=== PATIENT | male | born 1990 | race Caucasian/White ===

== ENCOUNTER 2021-04-14 10:04 | Emergency (ER) | payer SELFPAY ==
--- OUTSIDE RECORDS SUMMARY | 2021-04-14 10:07 | XMS REPORT | Continuity of Care Document ---
:1990 Author Organization [facility] t Address [address] [place] [address] Care Team Providers Name Role Phone Tolu GONZALEZ, A Attending Clinician Hi MOTLEY Attending Clinician Unavailable Problems This patient has no known problems. Allergies, Adverse Reactions, Alerts Allergy Allergy Status Severity Reaction(s) Onset Inactive Treating Comm ents Source Name Type Date Date Clinician NO KNOWN Drug Active [facility] Social History Social Habit Start Date Stop Date Quantity Comments Source Sex Assigned At Uni versity [facility] Exposure to SARS-CoV-2 Not sure [facility] Smoking Status Start Date Stop Date Source Unknown if ever smoked Universit y [facility] Medications Ordered Filled Start Stop Current Ordering Indication Dosage Frequency Signature Comments Components Source Medication Medication Date Date Medication? Clinician (SIG) Name Name NaCl 0.9% 2019-05 2020- No 1000mL at 999 Uni vers (NS) bolus 06-15 11-26 mL/hr, ity of infusion 09:30: 10:22 1,000 mL, Ariel as 1,000 mL 00 :00 IV Medical Infusion, Branch ONCE, 1 dose, Shaniqua 04/15/20 at 0330, JAMES No known No Univers medications [facility] Vital Signs Vital Name Observation Time Observation Value Comments Source Systolic blood 2020-04-15 12:14:20 112 mm[Hg] Univer sity of pressure [facility] Diastolic blood 2020-04-15 12:14:20 63 mm[Hg] Unive rsity of pressure [facility] Heart rate 2020-04-15 12:14:20 68 /min Universi ty [facility] Respiratory rate 2020-04-15 12:14:20 16 /min [facility] Oxygen saturation in 2020-04-15 12:14:20 95 /min [facility] Arterial blood by [facility] Pulse oximetry Branch Body temperature 2020-04-15 09:22:00 37.28 Kamila [facility] Body height 2020-04-15 09:22:00 188 cm [facility] Body weight 2020-04-15 09:22:00 83.915 kg [facility] BMI 2020-04-15 09:22:00 23.75 kg/m2 [facility] Procedures Procedure Date / Time Performed Performing Clinician Sour e URINALYSIS 2020-04-15 11:18:00 Valentino Motley [facility] HEPATIC FUNCTION PANEL 2020-04-15 09:29:00 Valentino Motley [facility] ([id number]) [facility] (ALB,T.PRO,BILI T,BU/BC,ALT,AST,ALK PHOS) BASIC METABOLIC PANEL 2020-04-15 09:29:00 Valentino Motley [facility] (NA, K, CL, CO2, Medical Branch GLUCOSE, BUN, CREATININE, CA) SALICYLATE 2020-04-15 09:29:00 Valentino Motley [facility] ETHANOL 2020-04-15 09:29:00 Valentino Motley [facility] CBC WITH DIFF 2020-04-15 09:29:00 Valentino Motley [facility] EXTRA TUBE LT. BLUE 2020-04-15 09:29:00 Valentino Mot[facility] Encounters Start End Encounter Admission Attending Care Care Encounter Source Date/Time Date/Time Type Type Clinicians Facility Department ID 2020-04-15 2020-04-15 Emergency ANAIS Motley [id number] Univers 03:18:00 06:48:00 Valentino [facility] [id number] ity of Clear [id number] [facility] [id number] [address] (CLC) 2020-04-15 2020-04-15 Emergency X ANAIS MOTLEY ERT [id number] Univers 03:18:00 03:18:00 VALENTINO handy o f [facility] Results Test Description Test Time Test Comments Results Result Comments Source Urinalysis 2020-04-15 11:48:00 Test Item Value Reference Range Interpretation Comme nts APPEARANCE (test code = Hazy Clear A 3491524769) COLOR (test code = 8803116725) Dark Yellow Yellow A PH (test code = 8012129822) 4.8-8.0 SP GRAVITY (test code = 1.003-1.030 9325165793) GLU U QUAL (test code = Normal Normal 1418723638) BLOOD (test code = 1514326914) Negative Negative KETONES (test code = Negative Negative 5365333315) PROTEIN (test code = 2887-8) 30 mg/dL Negative A UROBILIN (test code = 4.0 mg/dL Normal A 5784790600) BILIRUBIN (test code = Negative Negative 7991669581) NITRITE (test code = Negative Negative 0950704708) LEUK CHASITY (test code = Negative Negative 1002465562) RBC/HPF (test code = See_Comment [Autom ated message] The 2392254397) system which ge nerated this result transmit hipolito reference range : 0 - 3 HPF. The reference r rohan was not used to interpr et this result as sylvester l/abnormal. WBC/HPF (test code = <1 See_Comment [Autom ated message] The 2707530669) system which ge nerated this result transmit hipolito reference range : 0 - 5 HPF. The reference r rohan was not used to interpr et this result as sylvester l/abnormal. BACTERIA (test code = Negative Negative 8422714472) MUCOUS (test code = 1168955120) Slight Negative LPF A AMORPHOUS (test code = Few Rare HPF A 9425357915) SPERM (test code = 6950877929) See_Comment H [Automated message] The system which ge nerated this result transmit hipolito reference range : <=1 HPF. The reference r rohan was not used to interpr et this result as sylvester l/abnormal. Lab Interpretation (test code = Abnormal 65722-9) [facility] [id number] 11:26:00 Test Item Value Reference Range Interpretation Comments ALCOHOL (test code = <10 mg/dL 0872210776) YAZMIN (test code = Toxic Greater than or YAZMIN) equal to 80 mg/dL. NOTE: Whole blood values are approximately 10% to 15% lower than serum and plasma. [facility]2020-11-26 11:26:00 Test Item Value Reference Range Interpretation Comments SALICYLATE (test code <10 mg/L = 4396822877) YAZMIN (test code = YAZMIN) Therapeutic Range: ? Analgesic and Antipyretic Use ? 20-100 mg/L ? ? Anti-Inflammatory Use ? 100-250 mg/L Toxic Range: ? Greater than 300 mg/L [facility]2020-11-26 11:26:00 Test Item Value Reference Range Interpretation Comments ACETAMINOP (test code = <10.0 10-30 L 9593170091) YAZMIN (test code = YAZMIN) Toxic: Greater than 200 ug/mL @ 4 hour post ingestion or greater than 50 ug/mL @ 12 hour post ingestion Lab Interpretation (test Abnormal code = 64682-8) [facility] (NA, K, CL, CO2, GLUCOSE, BUN, CREATININE, CA)2020-04-15 09:51:00 Test Item Value Reference Range Interpretation Comments NA (test code = 140 mmol/L 135-145 3258420841) K (test code = 4.3 mmol/L 3.5-5 2656299438) CL (test code = 100 mmol/L 98-108 2574111316) CO2 TOTAL (test code = 31 mmol/L 23-31 3941568224) AGAP (test code = 2-16 5531164782) BUN (test code = 17 mg/dL 7-23 4421524597) GLUCOSE (test code = 111 mg/dL 70-110 H 5935447658) CREATININE (test code = 1.29 mg/dL 0.6-1.25 H 3779854238) CALCIUM (test code = 9.6 mg/dL 8.6-10.6 9025784788) eGFR Calculation mL/min/1.73m2 (Non-) (test code = 9824292502) eGFR Calculation mL/min/1.73m2 () (test code = 7950819467) YAZMIN (test code = YAZMIN) Association of Glomerular Filtration Rate (GFR) and Staging of Kidney Disease* + --+ --+ ------+| GFR (mL/min/1.73 m2) ?| With Kidney Damage ?| ?Without Kidney Damage+ --------+ --------+ +| ?>90 ?| ?Stage one ?| ? Normal ?+ ---+ ---+ -------+| ?60-89 ?| ?Stage two ?| ? Decreased GFR ? + --+ --+ ------+| ?30-59 ?| ?Stage three ?| ? Stage three ? + --+ --+ ------+| ?15-29 ?| ?Stage four ? | ? Stage four ?+ ---+ ---+ -------+| ?<15 (or dialysis) ? ?| ?Stage five ? | ? Stage five ?+ ---+ ---+ -------+ *Each stage assumes the associated GFR level has been in effect for at least three months. ?Stages 1 to 5, with or without kidney disease, indicate chronic kidney disease. Notes: Determination of stages one and two (with eGFR >59mL/min/1.73 m2) requires estimation of kidney damage for at least three months as defined by structural or functional abnormalities of the kidney, manifested by either:Pathological abnormalities or Markers of kidney damage (including abnormalities in the composition of the blood or urine or abnormalities in imaging tests). Lab Interpretation Abnormal (test code = 22601-4) [facility] (ALB, T.PRO, BILI T, BU/BC, ALT, AST, ALK PHOS)2020-04-15 09:51:00 Test Item Value Reference Range Interpretation Comments TOTAL BILI (test code = 2979000302) 0.6 mg/dL 0.1-1.1 BILI UNCON (test code = 8659970549) 0.6 mg/dL 0.1-1.1 BILI CONJ (test code = 5046751857) 0.0 mg/dL 0-0.3 T PROTEIN (test code = 7119520555) 7.1 g/dL 6.3-8.2 ALBUMIN (test code = 1199164716) 4.5 g/dL 3.5-5 ALK PHOS (test code = 0760108526) 41 U/L 34-122 ALTv (test code = 1742-6) 19 U/L 5-50 AST(SGOT) (test code = 0096243859) 25 U/L 13-40 Lab Interpretation (test code = Normal 27217-2) [facility] with [id number] 09:37:00 Test Item Value Reference Range Interpretation Comments WBC (test code = See_Comment [Automated 6690-2) message] The sy stem which generated this result transmitted reference range : 4.20 - 10.70 10*3/?L. The reference range was not used to interpret this result as normal/abnormal . RBC (test code = See_Comment [Automated 789-8) message] The sy stem which generated this result transmitted reference range : 4.26 - 5.52 10*6/?L. The reference range was not used to interpret this result as normal/abnormal . HGB (test code = 16.4 g/dL 12.2-16.4 718-7) HCT (test code = 46.3 % 38.4-49.3 4544-3) MCV (test code = 93.3 fL 81.7-95.6 787-2) MCH (test code = 33.1 pg 26.1-32.7 H 785-6) MCHC (test code = 35.4 g/dL 31.2-35 H 786-4) RDW-SD (test code = 38.8 fL 38.5-51.6 50463-1) RDW-CV (test code = 11.3 % 12.1-15.4 L 788-0) PLT (test code = See_Comment [Automated 777-3) message] The sy stem which generated this result transmitted reference range : 150 - 328 10*3/ ?L. The reference r rohan was not used to interpret this result as normal/abnormal . MPV (test code = 9.2 fL 9.8-13 L 06080-0) NRBC/100 WBC (test See_Comment [Automat ed code = 6347683408) message] The system which generated this result transmitted reference range : 0.0 - 10.0 /100 WBCs. The refer ence range was not u sed to interpret th is result as normal/abnormal . NRBC x10^3 (test code <0.01 See_Comment [Auto mated = 5835576720) message] The s ystem which generated this result transmitted reference range : 10*3/?L. The reference range was not used to interpret this result as normal/abnormal . GRAN MAT (NEUT) % 52.7 % (test code = 770-8) IMM GRAN % (test code 0.30 % = 2739682123) LYMPH % (test code = 30.8 % 736-9) MONO % (test code = 12.8 % 5905-5) EOS % (test code = 1.7 % 713-8) BASO % (test code = 1.7 % 706-2) GRAN MAT x10^3(ANC) 4.01 10*3/uL 1.99-6.95 (test code = 1123733343) IMM GRAN x10^3 (test <0.03 0-0.06 code = 0397396015) LYMPH x10^3 (test code 2.34 10*3/uL 1.09-3.23 = 731-0) MONO x10^3 (test code 0.97 10*3/uL 0.36-1.02 = 742-7) EOS x10^3 (test code = 0.13 10*3/uL 0.06-0.53 711-2) BASO x10^3 (test code 0.13 10*3/uL 0.01-0.09 H = 704-7) Lab Interpretation Abnormal (test code = 35897-0) [facility]"
[2021-04-14] MEDS ORDERED: AMOX/K CLAV 875 MG TAB ONE (11:02)
--- NOTE | 2021-04-14 11:15 | EDPHYS ---
Physician Documentation [facility] Name: Héctor Chow Age: 30 yrs Sex: Male : 1990 Arrival Date: 04/14/2021 Time: 10:05 Bed 17 Private MD: ED Physician Jennifer Best HPI: 04/14 11:12 This 30 yrs old Male presents to ER via Ambulatory with complaints of Lip Swelling. ma2 11:12 Onset: The symptoms/episode began/occurred gradually, 3 day(s) ago. Associated signs ma2 and symptoms: Pertinent negatives: dazed, injury, neck pain, seizure, vomiting, generalized weakness. Severity of symptoms: At their worst the symptoms were mild, in the emergency department the symptoms are unchanged. The patient has not experienced similar symptoms in the past. Historical: - Allergies: 10:32 No Known Allergies; vg1 - Home Meds: 10:32 None [Active]; vg1 - PMHx: 10:32 None; vg1 - PSHx: 10:32 Left wrist; vg1 - Immunization history:: Client reports having NOT received the Covid vaccine. - Social history:: Smoking status: Patient reports the use of cigarette tobacco products, smokes one-half pack cigarettes per day. - Family history:: not pertinent. ROS: 11:12 Constitutional: Negative for fever, chills, and weight loss. ma2 11:12 All other systems are negative. Exam: 11:12 Constitutional: This is a well developed, well nourished patient who is awake, alert, ma2 and in no acute distress. Head/Face: Patient has a right lower lip cellulitis, mild, otherwise doing, gum and airway are intact. And no airway swelling or compromise. Eyes: Pupils equal round and reactive to light, extra-ocular motions intact. Lids and lashes normal. Conjunctiva and sclera are non-icteric and not injected. Cornea within normal limits. Periorbital areas with no swelling, redness, or edema. ENT: Nares patent. No nasal discharge, no septal abnormalities noted. Tympanic membranes are normal and external auditory canals are clear. Oropharynx with no redness, swelling, or masses, exudates, or evidence of obstruction, uvula midline. Mucous membranes moist. Neck: Trachea midline, no thyromegaly or masses palpated, and no cervical lymphadenopathy. Supple, full range of motion without nuchal rigidity, or vertebral point tenderness. No Meningismus. Chest/axilla: Normal chest wall appearance and motion. Nontender with no deformity. No lesions are appreciated. Cardiovascular: Regular rate and rhythm with a normal S1 and S2. No gallops, murmurs, or rubs. Normal PMI, no JVD. No pulse deficits. Respiratory: Lungs have equal breath sounds bilaterally, clear to auscultation and percussion. No rales, rhonchi or wheezes noted. No increased work of breathing, no retractions or nasal flaring. Abdomen/GI: Soft, non-tender, with normal bowel sounds. No distension or tympany. No guarding or rebound. No evidence of tenderness throughout. Vital Signs: 10:31 BP 132 / 89; Pulse 100; Resp 16; Temp 98.3; Pulse Ox 100% ; Weight 79.38 kg; Height 6 vg1 ft. 2 in. (187.96 cm); Pain 5/10; 11:30 BP 128 / 76; Pulse 81; Resp 18; Temp 98.2; Pulse Ox 100% ; sl2 10:31 Body Mass Index 22.47 (79.38 kg, 187.96 cm) vg1 MDM: 11:12 Differential diagnosis: Contusion of Hematoma on cellulitis right lower li[. Data ma2 reviewed: vital signs, nurses notes, EMS record. Counseling: I had a detailed discussion with the patient and/or guardian regarding: the historical points, exam findings, and any diagnostic results supporting the discharge/admit diagnosis, the presence of at least one elevated blood pressure reading (>120/80) during this emergency department visit, the need for outpatient follow up. Response to treatment: the patient's symptoms have markedly improved after treatment. 11:14 Patient medically screened. ma2 Administered Medications: 11:15 Drug: Augmentin (Amoxicillin-Clavulanate) 875 mg Route: PO; sl2 12:10 Follow up: Response: No adverse reaction sl2 11:15 Drug: Augmentin (Amoxicillin-Clavulanate) 875 mg Route: PO; sl2 11:40 Follow up: Response: No adverse reaction sl2 11:15 Drug: predniSONE 40 mg Route: PO; sl2 11:40 Follow up: Response: No adverse reaction sl2 Disposition Summary: 04/14/21 11:14 Discharge Ordered Location: Home ma2 Condition: Stable ma2 Diagnosis - Cellulitis of face - lower lip, right side ma2 Followup: ma2 - With: Private Physician - When: Tomorrow - Reason: Continuance of care Discharge Instructions: - Discharge Summary Sheet ma2 - Cellulitis, Adult ma2 Forms: - Medication Reconciliation Form ma2 - Thank You Letter ma2 - Antibiotic Education ma2 - Prescription Opioid Use ma2 Prescriptions: - Augmentin 875-125 mg Oral Tablet - take 1 tablet by ORAL route every 12 hours for 10 days; 20 tablet; Refills: 0, ma2 Product Selection Permitted - Diclofenac Sodium 75 mg Oral Tablet Sustained Release - take 1 tablet by ORAL route 2 times per day; 30 tablet; Refills: 0, Product ma2 Selection Permitted - Medrol (Bairon) 4 mg Oral Tablets, Dose Pack - take 1 tablet by ORAL route as directed - follow package instructions; 1 ma2 packet; Refills: 0, Product Selection Permitted Signatures: Jennifer Best MD MD ma2 Monica Ibarra RN RN vg1 Patti Arroyo RN RN sl2
--- NOTE | 2021-04-14 11:15 | ER ---
Nurse's Notes [facility] Name: Héctor Chow Age: 30 yrs Sex: Male : 1990 Arrival Date: 04/14/2021 Time: 10:05 Bed 17 Private MD: Diagnosis: Cellulitis of face-lower lip, right side Presentation: 04/14 10:31 Chief complaint: Patient states: Right side of lower lip swelling for about two days, vg1 stated worse this morning. Stated 'may be from an ingrown hair'. Lower lip appears to be swollen and red. Denies difficulty breathing. Coronavirus screen: Vaccine status: Patient reports being unvaccinated. Client denies travel out of the [place] in the last 14 days. Ebola Screen: Patient negative for fever greater than or equal to 101.5 degrees Fahrenheit, and additional compatible Ebola Virus Disease symptoms. Initial Sepsis Screen: Does the patient meet any 2 criteria? No. Patient's initial sepsis screen is negative. Does the patient have a suspected source of infection? No. Patient's initial sepsis screen is negative. Risk Assessment: Do you want to hurt yourself or someone else? Patient reports no desire to harm self or others. Onset of symptoms was April 12, 2021. 10:31 Method Of Arrival: Ambulatory vg1 10:31 Acuity: MELISSA 4 vg1 Triage Assessment: 10:32 General: Appears in no apparent distress. uncomfortable, Behavior is calm, cooperative. vg1 Pain: Complains of pain in lower lip Pain currently is 5 out of 10 on a pain scale. Pain began 2-3 days ago. Respiratory: Airway is patent Respiratory effort is even, unlabored. Derm:. Derm: Skin is red, lower lip. Musculoskeletal: Swelling present in lower lip. Historical: - Allergies: 10:32 No Known Allergies; vg1 - Home Meds: 10:32 None [Active]; vg1 - PMHx: 10:32 None; vg1 - PSHx: 10:32 Left wrist; vg1 - Immunization history:: Client reports having NOT received the Covid vaccine. - Social history:: Smoking status: Patient reports the use of cigarette tobacco products, smokes one-half pack cigarettes per day. - Family history:: not pertinent. Screenin:40 Nutritional screening: No deficits noted. sl2 10:40 Tuberculosis screening: No symptoms or risk factors identified. Fall Risk None sl2 identified. 10:45 Abuse screen: Denies threats or abuse. sl2 Vital Signs: 10:31 BP 132 / 89; Pulse 100; Resp 16; Temp 98.3; Pulse Ox 100% ; Weight 79.38 kg; Height 6 vg1 ft. 2 in. (187.96 cm); Pain 5/10; 11:30 BP 128 / 76; Pulse 81; Resp 18; Temp 98.2; Pulse Ox 100% ; sl2 10:31 Body Mass Index 22.47 (79.38 kg, 187.96 cm) vg1 ED Course: 10:05 Patient arrived in ED. ds1 10:30 Jennifer Best MD is Attending Physician. ma2 10:32 Triage completed. vg1 10:32 Arm band placed on. vg1 10:40 Patient has correct armband on for positive identification. sl2 10:50 No provider procedures requiring assistance completed. sl2 10:50 Patient did not have IV access during this emergency room visit. sl2 11:01 Patti Arroyo, RN is Primary Nurse. sl2 Administered Medications: 11:15 Drug: Augmentin (Amoxicillin-Clavulanate) 875 mg Route: PO; sl2 12:10 Follow up: Response: No adverse reaction sl2 11:15 Drug: Augmentin (Amoxicillin-Clavulanate) 875 mg Route: PO; sl2 11:40 Follow up: Response: No adverse reaction sl2 11:15 Drug: predniSONE 40 mg Route: PO; sl2 11:40 Follow up: Response: No adverse reaction 2 Outcome: 11:14 Discharge ordered by . vt2 12:08 Discharged to home ambulatory. sl2 12:08 Condition: stable 12:08 Discharge instructions given to patient, Instructed on discharge instructions, follow up and referral plans. medication usage. 12:08 Demonstrated understanding of instructions, follow-up care, medications, Prescriptions given X 3. 12:12 Patient left the ED. 2 Signatures: Chrissy Whitten ds1 Jenniefr Best MD MD ma2 Monica Ibarra, RN RN 1 Patti Arroyo RN RN 2
[2021-04-14] MEDS ORDERED: predniSONE 20 MG TAB ONE (11:51)
[2021-04-14 12:32] VITALS: BP 132/89; TEMP 98.3; O2SAT 100
== END 2021-04-14 12:12 | disposition home or self-care (01) ==
LOC: ER 10:04
DX: L03.211 Cellulitis of face (principal); F17.210 Nicotine dependence, cigarettes, uncomplicated
CPT/HCPCS: 99283; J7512